=== PATIENT | male | born 1980 | race Caucasian/White ===

== ENCOUNTER 2017-08-22 13:59 | Emergency (ER) | payer OTHER ==
[~2017-08-22] VITALS: Ht 188 cm; Wt 108.9 kg
--- NOTE | 2017-08-22 14:11 | NUR ---
Dr. Winter here to see pt for MSE.
[2017-08-22] MEDS ORDERED: potassium (14:38)
[2017-08-22 14:45] LABS: BASOPHILS % (AUTO) 0.7 % (0.0-2.0); EOSINOPHILS # (AUTO) 0.2 K/uL (0.0-0.7); HEMATOCRIT 40.6 % (36.7-47.1); HEMOGLOBIN 13.9 g/dL (12.5-16.3); LYMPHOCYTES # (AUTO) 1.3 K/uL (20.0-40.0); LYMPHOCYTES % (AUTO) 22.5 % (20.5-51.5); MEAN CORPUSCULAR HEMOGLOBIN 32.7 uug (23.8-33.4); MEAN CORPUSCULAR HGB CONC 34 g/dL (32.5-36.3); MEAN CORPUSCULAR VOLUME 95.8 fL (73.0-96.2); MONOCYTES # (AUTO) 0.3 K/uL (2.0-10.0); MONOCYTES % (AUTO) 5.7 % (0.0-11.0); NEUTROPHILS % (AUTO) 68.1 % (38.5-71.5); PLATELET COUNT (AUTO) 138 K/uL (152-348); RED BLOOD CELL COUNT(AUTO) 4.24 MIL/uL (4.06-5.63); WHITE BLOOD COUNT (AUTO) 5.9 K/uL (3.6-10.2)
[2017-08-22 14:52] LABS: POTASSIUM 3.9 mmol/L (3.5-5.1)
[2017-08-22 14:58] LABS: BILIRUBIN,TOTAL 0.6 mg/dL (0.2-1.0); TOTAL PROTEIN, SERUM 5.9 g/dL (6.4-8.2)
--- NOTE | 2017-08-22 16:37 | NUR ---
PT WAS D/C TO HOME. AFTER DR MONTELONGO RE-EVALUATION. NO S/S OF DISTRESS AT THIS TIME. GAIT IS STABLE. PT DENIES PAIN, NO N/V, NO DIZZINESS. D/C INSTRUCTIONS GIVEN TO THE PT.
[2017-08-22 16:40] VITALS: BP 126/75
== END 2017-08-22 16:41 | disposition home or self-care (01) ==
LOC: ER 13:59
DX: R55 Syncope and collapse (principal); R42 Dizziness and giddiness; J45.909 Unspecified asthma, uncomplicated
CPT/HCPCS: 36415; 71045; 80053; 84484; 85025; 93005; 99285; A4663; 70030-TC